=== PATIENT | female | born 1990 | race American Indian/Alaskan Native ===

== ENCOUNTER 2016-12-13 07:03 | Emergency (ER) | payer OTHER ==
[2016-12-13 07:51] LABS: Basophils % (Auto) 0.4 % (0.0-1.8); Eosinophils % (Auto) 0.8 % (0.0-4.3); Hematocrit 38.1 % (30.3-42.9); Hemoglobin 12.6 gm/dl (10.1-14.3); Mean Corpuscular HGB Conc 33 % (30-34); Mean Corpuscular Hemoglobin 29 pg (28-32); Mean Corpuscular Volume 87 fl (79-97); Platelet Count 310 K/mm3 (140-440); Red Cell Distribution Width 15.6 % (13.2-15.2); White Blood Count 6.5 K/mm3 (4.5-11.0)
[2016-12-13 07:58] LABS: Bilirubin,Urine NEG (Negative); Blood,Urine NEG (Negative); Ketones,Urine NEG (Negative); Leukocyte Esterase,Urine NEG (Negative); Mucus,Urine 2+ /HPF; Nitrite,Urine NEG (Negative); Protein,Urine <15 mg/dL mg/dL (Negative); Urobilinogen,Urine < 2.0 mg/dL (<2.0)
[2016-12-13 08:10] LABS: Alanine Aminotransferase 11 units/L (7-56); Albumin 4.1 g/dL (3.9-5); Albumin/Globulin Ratio 1.2 %; Alkaline Phosphatase 56 units/L (35-129); Anion Gap 17 mmol/L; Bilirubin,Total 0.5 mg/dL (0.1-1.2); Blood Urea Nitrogen 9 mg/dL (7-17); Calcium 9.4 mg/dL (8.4-10.2); Carbon Dioxide 26 mmol/L (22-30); Chloride 102.4 mmol/L (98-107); Glucose 89 mg/dL (65-100); Lipase 18 units/L (13-60); Sodium 141 mmol/L (137-145); Total Protein 7.5 g/dL (6.3-8.2)
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
[2016-12-13] MEDS ORDERED: PROTONIX IV ONE (12:06)
[2016-12-13] MEDS ORDERED: NACL ONE (13:04)
--- NOTE | 2016-12-13 14:08 | Cat Scan Report ---
CT HEAD WITHOUT CONTRAST: HISTORY: Headache. Serial contiguous axial images were obtained through the cranium. Intravenous contrast material was not administered. The ventricles are normal in size and appearance. There is no mass effect or midline shift. No areas of abnormally increased or decreased attenuation are seen. No mass lesion is seen. The mastoid air cells and visualized portions of the sinuses are normal. IMPRESSION: Cranial CT scan within normal limits.
--- NOTE | 2016-12-13 14:10 | Cat Scan Report ---
CT SCAN OF THE ABDOMEN AND PELVIS WITH CONTRAST: HISTORY: Abdominal pain. TECHNIQUE: Helical CT in 1.25mm intervals following IV contrast. Sagittal and coronal reconstructions. FINDINGS: The liver is normal in size and is without focal defect. No gallstones or biliary dilatation are noted. The spleen and pancreas demonstrate a normal size and attenuation with no evidence of abnormal mass. The kidneys are normal in size and position with no evidence of hydronephrosis or mass. The adrenal glands are normal. There is no intestinal obstruction or ascites. Normal appendix. The abdominal aorta is normal. The uterus and adnexa are within normal limits. There is no evidence of peritoneal air or fluid. There is no evidence of any abnormal masses or fluid collections within the pelvis. No adenopathy is identified. The bladder is normal. IMPRESSION: Unremarkable CT scan of the abdomen and pelvis with contrast.
[2016-12-13 15:39] VITALS: BP 111/74
== END 2016-12-13 15:05 | disposition home or self-care (01) ==
LOC: EDBD 07:03 → ED 07:03
DX: S09.90XA Unspecified injury of head, initial encounter (principal); R10.84 Generalized abdominal pain; V49.9XXA Car occupant (driver) (passenger) injured in unspecified traffic accident, initial encounter; Y92.488 Other paved roadways as the place of occurrence of the external cause; Y93.89 Activity, other specified; Y99.8 Other external cause status
CPT/HCPCS: 36415; 70450; 74177; 80053; 81001; 81025; 83690; 85025; 96374; 99284; C9113; Q9967

== ENCOUNTER 2017-02-01 00:09 | Emergency (ER) | payer SELFPAY ==
[2017-02-01 01:02] LABS: Basophils % (Auto) 0.3 % (0.0-1.8); Eosinophils % (Auto) 0.4 % (0.0-4.3); Hematocrit 40.3 % (30.3-42.9); Hemoglobin 13.3 gm/dl (10.1-14.3); Mean Corpuscular HGB Conc 33 % (30-34); Mean Corpuscular Hemoglobin 28 pg (28-32); Mean Corpuscular Volume 86 fl (79-97); Platelet Count 334 K/mm3 (140-440); Red Blood Count 4.69 M/mm3 (3.65-5.03); Red Cell Distribution Width 14.4 % (13.2-15.2); White Blood Count 13.2 K/mm3 (4.5-11.0)
[2017-02-01 01:24] LABS: Alanine Aminotransferase 9 units/L (7-56); Albumin 4.4 g/dL (3.9-5); Albumin/Globulin Ratio 1.3 %; Alkaline Phosphatase 64 units/L (35-129); Anion Gap 21 mmol/L; BUN/Creatinine Ratio 15.71; Bilirubin,Total 0.6 mg/dL (0.1-1.2); Blood Urea Nitrogen 11 mg/dL (7-17); Calcium 9.3 mg/dL (8.4-10.2); Carbon Dioxide 22 mmol/L (22-30); Chloride 97.7 mmol/L (98-107); Glucose 79 mg/dL (65-100); Lipase 17 units/L (13-60); Potassium 3.4 mmol/L (3.6-5.0); Sodium 137 mmol/L (137-145); Total Protein 7.7 g/dL (6.3-8.2)
[2017-02-01] MEDS ORDERED: PEPCID PO ONE (06:44)
[2017-02-01] MEDS ORDERED: NORCO 5/325 PO ONE (06:44)
--- NOTE | 2017-02-01 06:49 | Emergency Department Report ---
ED Abdominal Pain HPI - General Chief Complaint: Abdominal Pain Stated Complaint: ABD PAIN/NAUSEA Time Seen by Provider: 02/01/17 06:38 Source: patient Mode of arrival: Ambulatory Limitations: No Limitations - History of Present Illness Initial Comments: 26-year-old female presents to the emergency department complaining of right sided abdominal pain. Patient reports burning right-sided abdominal pain that radiates into her back. Pain has been present for 3 days and is constant. Patient reports one episode of mild nausea, but this has resolved. There has been no vomiting. Patient states that approximately 3 weeks ago she was seen emergency department for epigastric and chest pain. She states at that time, she was having pressure that would rise up into her chest and throat. This would be relieved after belching. She states that the symptoms have begun to recur as well. Patient is also denying diarrhea, fever, dysuria, or hematuria. There are no other complaints. MD Complaint: abdominal pain -: Gradual, days(s) (3) Location: R flank Radiation: back Migration to: no migration Severity: moderate Severity scale (0 -10): 4 Quality: burning Consistency: constant Improves With: nothing Worsens With: nothing Associated Symptoms: nausea - Related Data Previous Rx's Medication Instructions Recorded Last Taken Type Famotidine [Pepcid] 40 mg PO QHS #30 tablet 02/01/17 Unknown Rx HYDROcodone/APAP 5-325 [[place] 1 each PO Q6HR PRN #20 tablet 02/01/17 Unknown Rx 5/325] Allergies Allergy/AdvReac Type Severity Reaction Status Date / Time No Known Allergies Allergy Unverified 12/13/16 07:17 ED Review of Systems ROS: Stated complaint: ABD PAIN/NAUSEA Other details as noted in HPI Comment: All other systems reviewed and negative Gastrointestinal: abdominal pain, nausea ED Past Medical Hx - Past Medical History Previous Medical History?: No - Surgical History Past Surgical History?: Yes Additional Surgical History: D&C - Family History Family history: no significant - Social History Smoking Status: Never Smoker Substance Use Type: None - Medications Home Medications: Home Medications Medication Instructions Recorded Confirmed Last Taken Type Famotidine [Pepcid] 40 mg PO QHS #30 tablet 02/01/17 Unknown Rx HYDROcodone/APAP 5-325 [[place] 1 each PO Q6HR PRN #20 tablet 02/01/17 Unknown Rx 5/325] ED Physical Exam - General Limitations: No Limitations General appearance: alert, in no apparent distress - Head Head exam: Present: atraumatic, normocephalic - Eye Eye exam: Present: normal appearance, PERRL, EOMI - ENT ENT exam: Present: normal exam, normal orophraynx, mucous membranes moist - Neck Neck exam: Present: normal inspection, full ROM. Absent: tenderness - Respiratory Respiratory exam: Present: normal lung sounds bilaterally. Absent: respiratory distress - Cardiovascular Cardiovascular Exam: Present: regular rate, normal rhythm, normal heart sounds - GI/Abdominal GI/Abdominal exam: Present: soft, normal bowel sounds. Absent: distended, tenderness - Extremities Exam Extremities exam: Present: normal inspection, full ROM. Absent: tenderness - Back Exam Back exam: Present: normal inspection, full ROM, tenderness, paraspinal tenderness (right lumbar). Absent: CVA tenderness (R), CVA tenderness (L), vertebral tenderness - Neurological Exam Neurological exam: Present: alert, oriented X3. Absent: motor sensory deficit - Skin Skin exam: Present: warm, dry, intact ED Course Vital Signs 02/01/17 02/01/17 02/01/17 00:32 06:43 06:52 Temperature 98.0 F Pulse Rate 94 H 91 H Respiratory 22 20 20 Rate Blood Pressure 120/77 Blood Pressure 111/57 [Right] O2 Sat by Pulse 100 100 99 Oximetry 02/01/17 08:27 Temperature Pulse Rate 90 Respiratory 18 Rate Blood Pressure Blood Pressure 97/56 [Right] O2 Sat by Pulse 98 Oximetry ED Medical Decision Making - Lab Data Result diagrams: 02/01/17 00:50 02/01/17 00:50 - Radiology Data Radiology results: report reviewed Abdominal ultrasound reveals no acute intra-abdominal abnormality. - Medical Decision Making Lab and imaging results reviewed and discussed with the patient. Patient reports feeling better with IV fluids and oral medication. Patient will be discharged home at this time to follow up with her primary care physician. - Differential Diagnosis GERD, UTI, renal stone, pancreatitis, cholecystitis Critical care attestation.: If time is entered above; I have spent that time in minutes in the direct care of this critically ill patient, excluding procedure time. ED Disposition Clinical Impression: Abdominal pain in female patient Disposition: DISCHARGED TO HOME OR SELFCARE Is pt being admited?: No Condition: Stable Instructions: Abdominal Pain (ED) Prescriptions: Famotidine [Pepcid] 40 mg PO QHS #30 tablet HYDROcodone/APAP 5-325 [[place] 5/325] 1 each PO Q6HR PRN #20 tablet PRN Reason: Pain Referrals: ELIE SCHUMACHER MD [Staff Physician] - 3-5 Days Time of Disposition: 09:21
[2017-02-01 06:56] LABS: Bacteria,Urine 1+ /HPF (Negative); Bilirubin,Urine NEG (Negative); Blood,Urine NEG (Negative); Ketones,Urine 80 mg/dL (Negative); Leukocyte Esterase,Urine NEG (Negative); Mucus,Urine 2+ /HPF; Nitrite,Urine NEG (Negative); Urobilinogen,Urine < 2.0 mg/dL (<2.0)
[2017-02-01] MEDS ORDERED: NACL 0.9% 1000 ML 1,000 ML IV ONE (07:04)
--- NOTE | 2017-02-01 07:55 | Ultrasound Report ---
ULTRASOUND ABDOMEN COMPLETE: Technique: Transabdominal ultrasound with color Doppler interrogation. History: Right upper quadrant pain, right flank pain. Findings: The liver is normal size, contour and echotexture. The gallbladder dimensions are within normal limits without intraluminal stone, wall thickening, or pericholecystic fluid. The CBD is normal caliber. The visualized portions of the pancreas including the head and proximal body are within normal limits. Both kidneys are normal size, contour and position. The right kidney is slightly echogenic compared to left side. There is no evidence for focal renal lesion or hydronephrosis. The spleen and aorta are within normal limits. No aneurysmal dilatation is noted. No ascites. IMPRESSION: Slightly echogenic right kidney of uncertain significance. No obstructive uropathy is appreciated. Correlate with laboratory values. Otherwise, unremarkable exam of the abdomen.
[2017-02-01] MEDS ORDERED: MORPHINE ONE (08:20)
[2017-02-01] MEDS ORDERED: MORPHINE IV ONE (08:23)
[2017-02-01 10:05] VITALS: BP 100/54
== END 2017-02-01 09:27 | disposition home or self-care (01) ==
LOC: ED 00:09
DX: R10.9 Unspecified abdominal pain (principal)
CPT/HCPCS: 36415; 76700; 80053; 81001; 81025; 83690; 85025; 96360; 99284; J2270; J7030

== ENCOUNTER 2017-08-31 07:34 | Emergency (ER) | payer SELFPAY ==
[2017-08-31 07:44] VITALS: BP 118/72
--- NOTE | 2017-08-31 08:36 | Emergency Department Report ---
ED ENT HPI - General Chief complaint: Earache Stated complaint: RIGHT EAR PAIN Time Seen by Provider: 08/31/17 08:36 Source: patient Mode of arrival: Ambulatory Limitations: No Limitations - History of Present Illness Initial comments: 27-year-old female presents with complaint of slightly muffled hearing and sensation of pressure in ears. Patient states she has had ear wax impaction in the past. Denies any fevers chills or purulent drainage from ears. Has not used any [id number] medicines for her earwax impaction. Has not seen an ENT for this problem. Denies any sore throat runny nose any fevers or chills. MD complaint: ear pain Onset/Timin -: month(s) Location: R ear, L ear Severity: mild Quality: aching Consistency: intermittent - Related Data Previous Rx's Medication Instructions Recorded Last Taken Type Famotidine [Pepcid] 40 mg PO QHS #30 tablet 02/01/17 Unknown Rx HYDROcodone/APAP 5-325 [[place] 1 each PO Q6HR PRN #20 tablet 02/01/17 Unknown Rx 5/325] Carbamide Peroxide [Ear Wax 5 drop OT BID #1 bottle 08/31/17 Unknown Rx Removal] Allergies Allergy/AdvReac Type Severity Reaction Status Date / Time No Known Allergies Allergy Unverified 12/13/16 07:17 ED Dental HPI - General Chief complaint: Earache Stated complaint: RIGHT EAR PAIN Time Seen by Provider: 08/31/17 08:36 Source: patient Mode of arrival: Ambulatory Limitations: No Limitations - Related Data Previous Rx's Medication Instructions Recorded Last Taken Type Famotidine [Pepcid] 40 mg PO QHS #30 tablet 02/01/17 Unknown Rx HYDROcodone/APAP 5-325 [[place] 1 each PO Q6HR PRN #20 tablet 02/01/17 Unknown Rx 5/325] Carbamide Peroxide [Ear Wax 5 drop OT BID #1 bottle 08/31/17 Unknown Rx Removal] Allergies Allergy/AdvReac Type Severity Reaction Status Date / Time No Known Allergies Allergy Unverified 12/13/16 07:17 ED Review of Systems ROS: Stated complaint: RIGHT EAR PAIN Other details as noted in HPI Constitutional: denies: chills, fever Eyes: denies: eye pain, eye discharge, vision change ENT: other (sensation of ear discomfort and slightly muffled hearing). denies: ear pain, throat pain Respiratory: denies: cough, shortness of breath, wheezing Cardiovascular: denies: chest pain, palpitations Endocrine: no symptoms reported Gastrointestinal: denies: abdominal pain, nausea, diarrhea Genitourinary: denies: urgency, dysuria, discharge Musculoskeletal: denies: back pain, joint swelling, arthralgia Skin: denies: rash, lesions Neurological: denies: headache, weakness, paresthesias Psychiatric: denies: anxiety, depression Hematological/Lymphatic: denies: easy bleeding, easy bruising ED Past Medical Hx - Past Medical History Previous Medical History?: No - Surgical History Additional Surgical History: D&C - Social History Smoking Status: Never Smoker Substance Use Type: None - Medications Home Medications: Home Medications Medication Instructions Recorded Confirmed Last Taken Type Famotidine [Pepcid] 40 mg PO QHS #30 tablet 02/01/17 Unknown Rx HYDROcodone/APAP 5-325 [[place] 1 each PO Q6HR PRN #20 tablet 02/01/17 Unknown Rx 5/325] Carbamide Peroxide [Ear Wax 5 drop OT BID #1 bottle 08/31/17 Unknown Rx Removal] ED Physical Exam - General Limitations: No Limitations General appearance: alert, in no apparent distress - Head Head exam: Present: atraumatic, normocephalic - Eye Eye exam: Present: normal appearance - ENT ENT exam: Present: mucous membranes moist - Expanded ENT Exam Expanded TM/Canal exam: Cerumen Impaction: Right TM, Left TM (partially obstructed ear canals with cerumen bilaterally, tympanic membranes partially visualized) - Neck Neck exam: Present: normal inspection - Respiratory Respiratory exam: Present: normal lung sounds bilaterally. Absent: respiratory distress - Cardiovascular Cardiovascular Exam: Present: regular rate, normal rhythm. Absent: systolic murmur, diastolic murmur, rubs, gallop - GI/Abdominal GI/Abdominal exam: Present: soft, normal bowel sounds - Extremities Exam Extremities exam: Present: normal inspection - Back Exam Back exam: Present: normal inspection - Neurological Exam Neurological exam: Present: alert, oriented X3 - Psychiatric Psychiatric exam: Present: normal affect, normal mood - Skin Skin exam: Present: warm, dry, intact, normal color. Absent: rash ED Course Vital Signs 08/31/17 07:39 Temperature 98.4 F Pulse Rate 76 Respiratory 20 Rate Blood Pressure 118/72 O2 Sat by Pulse 98 Oximetry - Ear Wax Removal Both Ears Ear Canal Irrigated by: other (PA) Ear Canal(s) Curettaged: plastic scoops Results: Re-examined: some cerumen remains TM Visible: TM(s) intact, normal appe Ear Canal: atraumatic Patient Tolerated Procedure: well Additional Comments: Cerumen removed from both ears, both tympanic membranes partially visualized no visible rupture no bleeding in the ear canals. ED Medical Decision Making - Medical Decision Making A/P: Cerumen impaction 1-cerumen partially removed, no signs of TM damage bilaterally 2-Motrin when necessary, Debrox solution 3- referred to ENT Critical care attestation.: If time is entered above; I have spent that time in minutes in the direct care of this critically ill patient, excluding procedure time. ED Disposition Clinical Impression: Impacted cerumen of both ears Disposition: TO HOME OR SELFCARE Is pt being admited?: No Does the pt Need Aspirin: No Condition: Stable Instructions: Cerumen Impaction (ED) Prescriptions: Carbamide Peroxide [Ear Wax Removal] 5 drop OT BID #1 bottle Referrals: JASS IGLESIAS MD [Staff Physician] - 3-5 Days IRLANDA FRANZ MD [Staff Physician] - 3-5 Days [facility] [Provider Group] - 3-5 Days [facility] [Provider [facility]] - 3-5 Days Time of Disposition: 08:58
== END 2017-08-31 09:08 | disposition home or self-care (01) ==
LOC: ED 07:34
DX: H61.23 Impacted cerumen, bilateral (principal)
CPT/HCPCS: 99282

== ENCOUNTER 2017-09-01 18:58 | Emergency (ER) | payer SELFPAY ==
[2017-09-01] MEDS ORDERED: LIDOCAINE VISCOUS 2% PO ONE (19:39)
--- NOTE | 2017-09-01 19:39 | Emergency Department Report ---
ED ENT HPI - General Chief complaint: Earache Stated complaint: STABBING EAR PAIN Time Seen by Provider: 09/01/17 19:27 Source: patient Mode of arrival: Ambulatory Limitations: No Limitations - History of Present Illness Initial comments: Pt here report that her ears are hurting. Patient said that she was here on and she got some off earwax removal but they didn't take all of it out. Provider states that he got quite a bit of earwax out of patient ears but patient started complaining of pain so he had to stop because the wax was very deep in the ear canal. Provider that saw the patient on 08/31/2017 gave patient prescription for Debrox. Reports that her ear pain is 8 out of 10 And achy. She said that the Debrox is just irritating her ear. Patient was told to follow-up with ear nose and throat doctor for evaluation and removal of remainder of earwax. He did not follow instructions and decided to come back to the emergency room. Denies any fever, cough, shortness of breath, nasal congestion or runny nose. Patient has history of similar problem where she said she has a buildup of earwax very quickly. MD complaint: ear pain, other (ear for ear wax removal) Onset/Timin -: Gradual Location: R ear, L ear Severity: severe Severity scale (0 -10): 8 Quality: aching Consistency: constant Improves with: none Worsens with: none Context- Ear: other (recent partial ear wax removal) Associated Symptoms: denies: fever, cough, gum swelling, toothache, pain with swallowing, sore throat, tinnitus, hearing loss, discharge from ear, rhinorrhea - Related Data Previous Rx's Medication Instructions Recorded Last Taken Type Famotidine [Pepcid] 40 mg PO QHS #30 tablet 02/01/17 Unknown Rx HYDROcodone/APAP 5-325 [[place] 1 each PO Q6HR PRN #20 tablet 02/01/17 Unknown Rx 5/325] Carbamide Peroxide [Ear Wax 5 drop OT BID #1 bottle 08/31/17 Unknown Rx Removal] Allergies Allergy/AdvReac Type Severity Reaction Status Date / Time No Known Allergies Allergy Verified 09/01/17 19:06 ED Dental HPI - General Chief complaint: Earache Stated complaint: STABBING EAR PAIN Time Seen by Provider: 09/01/17 19:27 Source: patient Mode of arrival: Ambulatory Limitations: No Limitations - Related Data Previous Rx's Medication Instructions Recorded Last Taken Type Famotidine [Pepcid] 40 mg PO QHS #30 tablet 02/01/17 Unknown Rx HYDROcodone/APAP 5-325 [[place] 1 each PO Q6HR PRN #20 tablet 02/01/17 Unknown Rx 5/325] Carbamide Peroxide [Ear Wax 5 drop OT BID #1 bottle 08/31/17 Unknown Rx Removal] Allergies Allergy/AdvReac Type Severity Reaction Status Date / Time No Known Allergies Allergy Verified 09/01/17 19:06 ED Review of Systems ROS: Stated complaint: STABBING EAR PAIN Other details as noted in HPI Comment: All other systems reviewed and negative Constitutional: no symptoms reported Eyes: denies: eye pain, eye discharge ENT: ear pain. denies: congestion Respiratory: no symptoms reported Cardiovascular: denies: chest pain, palpitations, dyspnea on exertion, edema, syncope Gastrointestinal: denies: abdominal pain, nausea, vomiting, diarrhea, constipation Musculoskeletal: denies: back pain, joint swelling, arthralgia, myalgia Skin: denies: rash Neurological: denies: headache, numbness, paresthesias, confusion, abnormal gait , vertigo ED Past Medical Hx - Past Medical History Previous Medical History?: Yes Additional medical history: ear wax impaction - Surgical History Past Surgical History?: Yes Additional Surgical History: D&C - Family History Family history: no significant - Social History Smoking Status: Never Smoker Substance Use Type: None - Medications Home Medications: Home Medications Medication Instructions Recorded Confirmed Last Taken Type Famotidine [Pepcid] 40 mg PO QHS #30 tablet 02/01/17 Unknown Rx HYDROcodone/APAP 5-325 [[place] 1 each PO Q6HR PRN #20 tablet 02/01/17 Unknown Rx 5/325] Carbamide Peroxide [Ear Wax 5 drop OT BID #1 bottle 08/31/17 Unknown Rx Removal] ED Physical Exam - General Limitations: No Limitations General appearance: alert, in no apparent distress - Head Head exam: Present: atraumatic, normocephalic, normal inspection - Eye Eye exam: Present: normal appearance, PERRL, EOMI Pupils: Present: normal accommodation - ENT ENT exam: Present: normal orophraynx, mucous membranes moist, normal external ear exam, other (Nasal mucosa normal without any drainage). Absent: TM's normal bilaterally - Expanded ENT Exam Expanded Ear exam: Present: normal external inspection. Absent: auricular hematoma, auricular trauma TM/Canal exam: Cerumen Impaction: Right TM, Left TM (unable to visualize bilateral TM due to earwax impaction) Mouth exam: Present: normal external inspection, tongue normal. Absent: drooling, trismus, muffled voice Teeth exam: Present: normal inspection Throat exam: Positive: normal inspection. Negative: tonsillomegaly, tonsillar exudate, R peritonsillar mass, L peritonsillar mass - Neck Neck exam: Present: normal inspection, full ROM, other (O C-spine tenderness). Absent: tenderness, meningismus, lymphadenopathy - Respiratory Respiratory exam: Present: normal lung sounds bilaterally. Absent: respiratory distress, wheezes, chest wall tenderness, accessory muscle use, decreased breath sounds, prolonged expiratory - Cardiovascular Cardiovascular Exam: Present: regular rate, normal rhythm, normal heart sounds. Absent: systolic murmur, diastolic murmur - GI/Abdominal GI/Abdominal exam: Present: soft, normal bowel sounds. Absent: distended, tenderness, guarding, rebound, rigid - Extremities Exam Extremities exam: Present: normal inspection, full ROM, normal capillary refill , other (cyanosis or edema to extremities. +2 pulses to extremities.). Absent : tenderness, pedal edema - Back Exam Back exam: Present: normal inspection, full ROM. Absent: tenderness, rash noted - Neurological Exam Neurological exam: Present: alert, oriented X3, normal gait - Psychiatric Psychiatric exam: Present: normal affect, normal mood - Skin Skin exam: Present: warm, dry, intact, normal color. Absent: rash ED Course Vital Signs 09/01/17 09/01/17 19:07 20:12 Temperature 98.6 F Pulse Rate 92 H Respiratory 18 18 Rate Blood Pressure 110/67 O2 Sat by Pulse 98 Oximetry - Reevaluation(s) Reevaluation #1: 09/01/17 20:36 Patient given Motrin for ear pain. Viscous lidocaine instilled in both ear and plan to irrigate ear canals to remove remained in earwax. I discussed the patient if this is not successful she will need to follow discharge instructions that was given on the to follow-up with ENT. She agreed. Reevaluation #2: 09/01/17 22:15 Earwax removal from both ears. Bilateral TM pearly pino. - Ear Wax Removal Both Ears Cerumenolytic Used: Other (viscous lidocaine placed in both ear and left for 20 minutes. ) Ear Canal Irrigated by: RN Ear Canal Irrigated With: warm saline using syringe/angiocath Results: Re-examined: cerumen removed completel TM Visible: TM(s) intact, normal appe Ear Canal: atraumatic Patient Tolerated Procedure: well, no complications Complications: no problems Additional Comments: Bilateral ear exam and after procedure. Bilateral TM pearly pino and bilaterally ear canal normal exam. Patient says she feels a lot better. ED Medical Decision Making - Medical Decision Making ED course: Pt here complaining of ear pain after she had cerumen removed 1 day ago. Physical findings for impacted cerumen in both ears and unable to visualize the eardrums. Please see procedure note for details on cerumen removal. Cerumen was completely removed without any injury. Patient tolerated well and reports that she is feeling better. Patient given Motrin 600 mg when necessary emergency room prior to procedure. Both TMs visualized after removal and are pearly pino and bilateral ear canal normal exam. I discussed diagnosis and treatment plan the patient and I told her to read discharge instruction on cerumen impaction and ways to prevent this from happening again. She voiced understanding patient discharged home with prescription for Auralgan in when necessary if she experience pain. I also discussed patient that she needs to follow-up with ENT because this is a chronic problem for her. Critical care attestation.: If time is entered above; I have spent that time in minutes in the direct care of this critically ill patient, excluding procedure time. ED Disposition Clinical Impression: Bilateral impacted cerumen, Otalgia of both ears Disposition: DC-01 TO HOME OR SELFCARE Is pt being admited?: No Does the pt Need Aspirin: No Condition: Stable Instructions: Cerumen Impaction (ED), Earache (ED), Anesthetics (Into the ear) Additional Instructions: Please follow up with ENT as previously recommended. See discharge instructions for referral. If you develop ear pain from procedure, you can use anesthetic ear drop that was prescribed to you. This is called Auralgan and over the counter Please read discharge instruction on cerumen impaction. Referrals: JASS IGLESIAS MD [Staff Physician] - 2-3 Days Forms: Work/School Release Form(ED)
[2017-09-01] MEDS ORDERED: MOTRIN PO ONE (19:41)
[2017-09-02 03:11] VITALS: BP 118/71
== END 2017-09-01 22:31 | disposition home or self-care (01) ==
LOC: ED 18:58
DX: H92.03 Otalgia, bilateral (principal); H61.23 Impacted cerumen, bilateral
CPT/HCPCS: 99282